=== PATIENT | male | born 1935 | race Caucasian/White ===

== ENCOUNTER 2018-04-25 07:36 | Observation (INO) ==
--- NOTE | 2018-04-25 11:32 | Internal Med History&Physical ---
Date of Encounter: 04/25/18 Time of Encounter: 11:26 Internal Medicine - H&P: HPI Chief complaint: chest pain Admitted From: Emergency Dept Plans for Post Hospital Care: Home History of present illness: Mr. Sharp is a 82 year old male Patient with history of COPD, chronic respiratory failure on 3l of oxygen at home, diabetes, CK D, and obesity patient present to [facility] with chest pain described as chest tightness going up to his neck worse with exertion also some shortness of breath and productive cough of thick yellow sputum. On arrival BP was 117/72 EKG was abnormal showing anteroseptal GA age undetermined with no acute changes troponin was a negative chest x-ray no acute pneumonia patient has increased his oxygen from 3-4 L and then he was transferred here for further evaluation because for chest pain he Is now more or less chest pain-free exam on arrival lungs bilateral rhonchi no active wheezing white count 12.5 hemoglobin 11.3 bun 66 creatinine is 3 no previous labs here but [facility] last year creatinine was 2.5. Past Med Surg Social Fam HX - Past Medical History Medical history: COPD, diabetes, hypertension, renal disease All Systems PM: A 10-system review of systems was performed and is negative for pertinent findings except as documented above in the HPI. - Constitutional General appearance: Present: A&O X 3 Exam: done - Respiratory Respiratory exam: Present: decreased breath sounds, rhonchi - Cardiovascular Cardiovascular exam: Present: RRR, +S1, +S2. Absent: diastolic murmur, gallop, rubs, systolic murmur - Extremities Exam Extremities exam: Present: warm, radial pulses palpable and symmetrical. Absent: calf tenderness, cyanotic, pedal edema - Assessment and plan (1) Chest pain Current Visit: Yes Status: Acute Assessment and plan: Chest pain and the patient with multiple risk factors diabetes, hypertension, obesity, with abnormal EKG of anteroseptal GA age undetermined need further cardiac evaluation with trend troponin obtain 2-D echo and nuclear stress test in a.m. Qualifiers: Chest pain type: unspecified Qualified Code(s): R07.9 - Chest pain, unspecified (2) COPD (chronic obstructive pulmonary disease) Current Visit: Yes Status: Chronic Assessment and plan: Chronic respiratory failure patient is uncontrolled today. Home will keep him home medication test no active wheezing at present Qualifiers: COPD type: emphysema Emphysema type: unspecified Qualified Code(s): J43.9 - Emphysema, unspecified (3) Diabetes 1.5, managed as type 2 Current Visit: Yes Status: Chronic Assessment and plan: Chronic resume home medication and place on sliding scale (4) EL (acute kidney injury) Current Visit: Yes Status: Chronic Assessment and plan: Acute on chronic kidney injury was started on IV hydration and consult nephrology for follow-up (5) Abnormal EKG Current Visit: Yes Status: Acute Assessment and plan: EKG is abnormal of anteroseptal GA age undetermined also possible due to lead placement we will repeat in a.m. and obtain 2-D echo to assess wall motion and LV function (6) Bronchitis Current Visit: Yes Status: Acute Assessment and plan: Patient with a productive cough of thick yellow sputum suggestive of bronchitis chest x-ray does not show pneumonia But has mild leukocytosis (7) Obesity Current Visit: Yes Status: Chronic Assessment and plan: Chronic due to excess caloric intake Qualifiers: Obesity type: due to excess calories Obesity classification: unspecified obesity classification Serious obesity comorbidity presence: unspecified whether serious comorbidity present Qualified Code(s): E66.09 - Other obesity due to excess calories - Time Spent With Patient Total time spent is greater than 50% in coordination of care (as documented) at patient's floor/unit and/or counseling patient:
[2018-04-25] MEDS ORDERED: traMADol 50 MG TABLET PO PRN (11:39)
[2018-04-25] MEDS ORDERED: Naloxone 0.4 MG/ML INJ IVP PRN (11:39)
[2018-04-25] MEDS ORDERED: D5% in Water 1,000 ML IVC PRN (11:52)
[2018-04-25] MEDS ORDERED: Dextrose Gel 15 GM/37.5 ML TUBE PO PRN ×2 (11:52)
[2018-04-25] MEDS ORDERED: *HR* Dextrose 50 % in Water (Syg) 50 ML SYRINGE IVP PRN (11:52)
[2018-04-25] MEDS: Levofloxacin 500 MG/100 ML 500 MG/100 ML BAG IVPB SCH (12:41)
[2018-04-25] MEDS: 0.9 % Sodium Chloride 1,000 ML IVC SCH (12:41)
[2018-04-25 12:43] LABS: Alanine Aminotransferase 9 Units/L (7-52); Albumin 3.5 g/dL (3.5-5.7); Albumin/Globulin Ratio 1.3 (1.1-2.2); Alkaline Phosphatase 80 Units/L (34-104); Aspartate Amino Transferase 10 Units/L (13-39); BUN/Creatinine Ratio 22 (6-26); Bilirubin,Total 0.5 mg/dL (0.3-1.0); Blood Urea Nitrogen 65 mg/dL (8-23); Calcium 8.5 mg/dL (8.6-10.3); Carbon Dioxide 21 mEq/L (23-29); Chloride 111 mEq/L (98-107); Globulin 2.7 g/dL (2.4-3.5); Glucose 121 mg/dL (70-105); Osmolality,Calculated 310 (280-300); Potassium 4.4 mEq/L (3.5-5.1); Sodium 140 mEq/L (136-145); Total Protein 6.2 g/dL (6.4-8.9); Troponin I < 0.03 ng/mL (< 0.04); eGFR For Non-African Americans 21 (> 60)
--- NOTE | 2018-04-25 12:59 | Event Note ---
Date of Encounter: 04/25/18 Time of Encounter: 12:58 - Cardiology Event Note Cardiology consulted for abnormal ECG. Troponin negative. Echo and stress test pending per primary service. Further cardiology recommendations pending testing.
[2018-04-25] MEDS: Acetaminophen 325 MG TABLET PO PRN ×2 (14:43→20:39)
[2018-04-25] MEDS: Insulin LISPRO 300 UNITS/3 ML VIAL SQ SCH ×2 (17:18→19:58)
[2018-04-26] MEDS: 0.9 % Sodium Chloride 1,000 ML IVC SCH ×2 (00:31→21:40)
[2018-04-26 00:57] LABS: Hematocrit 30.9 % (37.5-50.1); Hemoglobin 9.8 g/dL (12.9-16.9); Mean Corpuscular HGB Conc 31.7 g/dL (31.6-35.5); Mean Corpuscular Volume 91.4 fL (83.0-100.0); Platelet Count 210 K/mcL (140-400); Red Blood Count 3.38 M/mcL (4.19-5.50); Red Cell Distribution Width 13.8 % (11.5-14.5)
[2018-04-26 01:17] LABS: Chol/HDL Ratio 2.2 (0-4.9); Magnesium 2.2 mg/dL (1.6-2.6)
[2018-04-26] MEDS ORDERED: Regadenoson 0.4 MG/5 ML SYRINGE IVP ONE (05:45)
[2018-04-26] MEDS ORDERED: Nitroglycerin 0.4 MG TAB.SUBL SL PRN (07:34)
[2018-04-26] MEDS: Multivit/Ca/Min/Fe/FA 1 TAB TABLET PO SCH (07:51)
[2018-04-26] MEDS: Insulin LISPRO 300 UNITS/3 ML VIAL SQ SCH ×4 (07:54→21:27)
[2018-04-26] MEDS: Levofloxacin 500 MG/100 ML 500 MG/100 ML BAG IVPB SCH (08:10)
[2018-04-26 08:25] LABS: Calcium 8.4 mg/dL (8.6-10.3); Potassium 4.4 mEq/L (3.5-5.1)
--- NOTE | 2018-04-26 08:47 | Internal Med Progress Note ---
Hospitalist Progress Note - Encounter Date of Encounter: 04/26/18 Time of Encounter: 08:43 - Subjective Interval History: Patient continued to have 2/10 chest pressure that is midsternal. owever, he reports chest pressure sensa is worse with work of breathing and coughing. Denies any shortness of breath, dizziness, fatigue. He reports that he is stead rené improving. - Exam Vitals: Temp Pulse Resp BP Pulse Ox 98.5 F 99 20 124/66 98 04/26/18 07:24 04/26/18 07:24 04/26/18 07:24 04/26/18 07:24 04/26/18 08:07 Exam: PHYSICAL EXAMINATION: GENERAL: Elderly male, NAD, a and O 3 HEENT: Head is normocephalic and atraumatic. Extraocular muscles are intact. Pupils are equal, round, and reactive to light and accommodation. NECK: Supple. No carotid bruits. No lymphadenopathy or thyromegaly. CHEST: symmetrical expansion, no tenderness to palpation LUNGS: Clear to auscultation B/L AP and L. HEART: Regular rate and rhythm, S1, S2 without murmurs, rubs or gallops. ABDOMEN: Soft, nontender, and nondistended. Positive bowel sounds. No hepatosplenomegaly was noted. EXTREMITIES: Without any cyanosis, clubbing, rash, lesions or edema. NEUROLOGIC: Cranial nerves II through XII are grossly intact. PSYCHIATRIC: Appropriate affect, denies SI/HI, without agitation or anxiety SKIN: No ulceration or induration present. - Assessment and Plan (1) CKD (chronic kidney disease) stage 4, GFR 15-29 ml/min Current Visit: Yes Status: Acute Assessment and Plan: H/O CKD IV Scr 2.66 today improving compared to [place] labs and yesterdays Scr Continue to avoid nephrotoxins and monitor labs daily (2) Abnormal EKG Current Visit: Yes Status: Acute Assessment and Plan: EKG from [place] with anterior septal TN age undetermined Obtain repeat EKG this morning 2-D Echo pending To undergo stress test this afternoon (3) Bronchitis Current Visit: Yes Status: Acute Assessment and Plan: Complaining of shortness of breath, cough productive of moderate thick yellow sputum Recent diagnosis of bronchitis from PCP Chest x-ray without acute pulmonary process Continue to treat bronchitis with aerosols, add Levaquin Supportive care for cough (4) Chest pain Current Visit: Yes Status: Acute Assessment and Plan: Continues to endorse 2/10 midsternal chest pressure and shortness of breath Chest pressure does not appear to be cardiac in origin as patient is reporting worsening pressure with work of breathing and cough However, EKG did reveal anterior septal lateral TN of undetermined age Repeat EKG, obtain 2-D echo, stress test this afternoon Serial troponins negative 3 No events on telemetry overnight Continue to rule out ACS (5) EL (acute kidney injury) Current Visit: Yes Status: Resolved (6) COPD (chronic obstructive pulmonary disease) Current Visit: Yes Status: Chronic Assessment and Plan: History of interstitial lung disease; chronic respiratory failure with hypoxia Hypoxia worsening with acute exacerbation of COPD No active wheezing on auscultation Continue to treat with aerosols Respiratory support with nasal cannula as needed Currently resting comfortably and without respiratory distress on 4 L; wears 3 L chronically at home (7) Diabetes 1.5, managed as type 2 Current Visit: Yes Status: Chronic Assessment and Plan: Controlled, continue sliding scale coverage, fingerstick blood glucose and diabetic diet DVT Prophylaxis: eliquis - Time Spent with Patient Total time spent is greater than 50% in coordination of care (as documented) at patient's floor/unit and/or counseling patient: less than 15 minutes Plan of Care Discussed with: patient Internal Medicine: Result - Labs CBC & Chem 7: 04/26/18 00:22 04/26/18 07:37 Labs: Short CBC 04/26/18 Range/Units 00:22 WBC 11.3 H (4.3-11.1) K/mcL Hgb 9.8 L (12.9-16.9) g/dL Hct 30.9 L (37.5-50.1) % Plt Count 210 (140-400) K/mcL BMP 04/25/18 04/26/18 11:59 07:37 Sodium 140 140 Potassium 4.4 4.4 Chloride 111 H 115 H Carbon Dioxide 21 L 20 L BUN 65 H 55 H Creatinine 2.92 H 2.66 H Glucose 121 H 134 H Calcium 8.5 L 8.4 L Cardiac Enzymes 04/25/18 04/25/18 04/26/18 Range/Units 11:59 17:32 00:22 Troponin I < 0.03 < 0.03 < 0.03 (< 0.04) ng/mL Liver Function 04/25/ Range/Units 11:59 Total Bilirubin 0.5 (0.3-1.0) mg/dL AST 10 L (13-39) Units/L ALT 9 (7-52) Units/L Alkaline Phosphatase 80 (34-104) Units/L Albumin 3.5 (3.5-5.7) g/dL Consult Discharge Plan - Plan Referrals: Tim Chapin MD [Primary Care Provider] - (4) Chest pain Qualifiers: Chest pain type: unspecified Qualified Code(s): R07.9 - Chest pain, unspecified (6) COPD (chronic obstructive pulmonary disease) Qualifiers: COPD type: emphysema Emphysema type: unspecified Qualified Code(s): J43.9 - Emphysema, unspecified
--- NOTE | 2018-04-26 09:10 | Electrocardiograph Report ---
[place] [address] Test Date: 2018-04-25 Pat Name: Tim Sharp Department: 115 Room: 3B11 Gender: M Sample Room Supervisor: : 1935 Requested By: Elva Centeno Order Number: [id number] Reading MD: Luisito Mary Measurements Intervals [place] Rate: 119 P: [place]: 0 QRS: 12 QRSD: 77 T: 47 QT: 337 QTc: 408 Interpretive Statements Sinus tachycardia Prolonged OK interval Electronically Signed On 04-26-2018 9:08:25 EST by Luisito Mary
[2018-04-26] MEDS: Ipratropium/Albuterol Neb 3 ML IH SCH ×4 (11:41→21:38)
--- NOTE | 2018-04-26 13:34 | Electrocardiograph Report ---
[address] [address] Test Date: 2018-04-26 Pat Name: Tim Sharp Department: 113 Room: 3B11 Gender: Customer Services Coordinator: GORDO : 1935 Requested By: Tyron Vu Order Number: [id number] Reading MD: Eula Farias Measurements Intervals [place] Rate: 89 P: 44 [place]: 225 QRS: 5 QRSD: 105 T: 26 QT: 325 QTc: 372 Interpretive Statements SINUS RHYTHM WITH FIRST DEGREE AV BLOCK WITH OCCASIONAL VENTRICULAR PREMATURE COMPLEXES LOW QRS VOLTAGE IN PRECORDIAL LEADS Electronically Signed On 04-26-2018 13:32:52 EST by Eula Farias
[2018-04-26] MEDS: Apixaban 5 MG TABLET PO SCH (13:35)
--- NOTE | 2018-04-26 14:07 | Nephrology Consult Note ---
Date of Encounter: 04/26/18 Time of Encounter: 14:05 Assessment and Plan (1) Acute kidney injury superimposed on chronic kidney disease Current Visit: Yes Status: Acute - Patient initially presented to [facility] and was found to have an elevated creatinine at 3.01 - Patient has a known history of underlying chronic kidney disease stage IV - Acute kidney injury etiology is unknown at this time; unknown baseline creatinine - Patient does take Flomax 0.4 mg by mouth daily at home - Serum creatinine has since decreased to 2.66 Plan: - Will order retroperitoneal ultrasound to rule out obstructive etiology - UA ordered with CK, urine sodium, urine Cr, protein:Cr ratio, urine osmolality, and urine eosinophils - Continue gentle IV fluid hydration; currently on normal saline at 75 mL per hour - Renally dose medications, avoid nephrotoxins if possible (2) Chest pain Current Visit: Yes Status: Acute - Initially presented to [facility] with the chief complaint of chest pain - Patient still has midsternal chest pain with shortness of breath - EKG from [facility] demonstrated anterior septal IA; undetermined age - Troponin negative 3 - Cardiology has been consulted; awaiting recommendations - Stress test, 04/26: Negative for ischemia/infarct; Gated EF >70% Qualifiers: Chest pain type: unspecified Qualified Code(s): R07.9 - Chest pain, unspecified (3) Bronchitis Current Visit: Yes Status: Acute - Patient presented to [facility] complaining of SOB, productive cough with yellow sputum - Patient had a recent diagnosis of bronchitis from his PCP - Chest x-ray: No acute process - White count is 11.3 Plan: - Levaquin renally dosed at 500 mg IV Q48 - DuoNeb nebs every 6 hours - Continue O2 support via nasal cannula; maintain SPO2 >92% (4) COPD (chronic obstructive pulmonary disease) Current Visit: Yes Status: Chronic - Known history of COPD on 3 L of O2 at home - Presented with worsening shortness of breath and hypoxia - Currently being treated with duo nebs and Levaquin - Plan as above Qualifiers: COPD type: emphysema Emphysema type: unspecified Qualified Code(s): J43.9 - Emphysema, unspecified (5) CKD (chronic kidney disease) stage 4, GFR 15-29 ml/min Current Visit: Yes Status: Acute - Known history of chronic kidney disease - Plan as above (6) Diabetes Current Visit: Yes Status: Acute - Continue sliding scale insulin - Management per primary team Qualifiers: Qualified Code(s): E11.9 - Type 2 diabetes mellitus without complications History of Present Illness - History of Present Illness Tim Sharp is an 82 year old male with a PMH of COPD on 3 L O2, DM, CKD, and obesity who presented to [facility] on 04/25/18 with a chief complaint of chest pain. Patient describes pain as chest tightness going up his neck. Pain exacerbated with exertion, accompanied by shortness of breath and reactive cough with yellow sputum. EKG demonstrated anteroseptal IA, age undetermined without any acute changes. Troponin was negative. Patients oxygen requirement in creased to 3-4 L. Patient was subsequently transferred to [facility] for further management. Upon arrival, laboratory analysis demonstrated an elevated creatinine at 2.92, and elevated BUNs at 65, GFR 21, and a low calcium at 8.5. Creatinine has since decreased to 2.66. No prior labs for comparison per chart review. Patient normally sees a appeals board referee in the outpatient setting. Cardiology was consulted for the abnormal EKG. Echo and stress test were ordered. Patient continued to have 2 out of 10 chest pressure located in the middle sternum. Patient seen and examined at bedside; he reports that his chest pain has subsided since his stress test. States that he is on Flomax for an enlarged prostate. Patient states that his GFR baseline is approximately 23 according to his outpatient appeals board referee. Patient currently denies having any abdominal pain, suprapubic pain, urinary changes, fever, chills, nausea, vomiting, shortness of breath, chest pain, diaphoresis, or headache. He has no complaints at this time. Past Med Surg Social Fam HX - Past Medical History Medical history: COPD, diabetes, hypertension, renal disease - Social History Smoking Status: Former smoker - Family History Mother Hx Family Cardiac Disorders: Yes Father Hx Family Respiratory Disorders: Yes Hx Family Cancer: Yes Medications and Allergies Apixaban [Eliquis] 5 mg PO DAILY 04/25/18 [History] Ipratropium/Albuterol Neb [Duoneb] 3 ml IH Q6HR 04/25/18 [History] Multivitamin [One Daily Multivitamin] 1 tab PO DAILY 04/25/18 [History] Nitrofurantoin [Macrodantin] 50 mg PO DAILY 04/25/18 [History] Nitroglycerin [Nitrostat] 0.4 mg PO AD PRN 04/25/18 [History] Omeprazole [PriLOSEC] 40 mg PO DAILY 04/25/18 [History] Tamsulosin [Flomax] 0.4 mg PO DAILY 04/25/18 [History] Allergy/AdvReac Type Severity Reaction Status Date / Time Sulfa (Sulfonamide Allergy Hives Verified 04/25/18 12:28 Antibiotics) Penicillins AdvReac Hives Verified 04/25/18 12:28 tetanus and diphtheria AdvReac Joint Pain Verified 04/25/18 12:28 toxoids Review of Systems Constitutional: as per HPI, no chills, no fever(s), no headache(s), no malaise Cardiovascular: as per HPI, no chest pain, no chest pain at rest, no diaphoresis, no dyspnea, no palpitations Respiratory: as per HPI, no cough, no dyspnea, no wheezing, no pain on insp iration Gastrointestinal: as per HPI, no abdominal pain, no change in bowel habits Genitourinary Male: as per HPI, no hematuria, no urinary frequency, no urinary hesitancy, no urinary incontinence, no urinary urgency Integumentary: as per HPI, no hirsutism, no striae Neurological: as per HPI Psychiatric: as per HPI, no depression, no difficulty concentrating Endocrine: as per HPI Exam - Vital Signs Vital signs: Initial Vital Signs Pulse Ox 91 04/25/18 11:30 Vital Signs - Last 8 Hours Temp Pulse Resp BP Pulse Ox 04/26/18 11:13 98.5 F 98 20 106/61 98 04/26/18 08:07 98 04/26/18 07:24 98.5 F 99 20 124/66 98 Intake and Output 04/25/18 04/26/18 04/26/18 23:59 07:59 15:59 Intake Total 340 / 340 1000 / 1000 Output Total 500 / 500 975 / 975 500 / 500 Balance -160 / -160 25 / 25 -500 / -500 Intake: IV Fluids 100 / 100 1000 / 1000 0.9 % Sodium Chloride 1,000 ML 1000 / 1000 @ 75 mls/hr IVC .[id number] [facility] Rx #:[id number] Levaquin Premix 500mg/100mL 500 100 / 100 mg In 100 ml @ 100 mls/hr IVPB DAILY [facility] Rx#:[id number] Oral 240 / 240 0 / 0 Output: Urine 500 / 500 975 / 975 500 / 500 Other: Meal Dinner Percent of Meal Consumed 100% Weight 80.2 kg Blood Glucose* 126 134 125 Patient Weight 04/26/18 23:59 Weight 80.2 kg - General Appearance Exam: General: A&O X3, no acute distress, currently on O2 via nasal cannula Head: atraumatic, normocephalic Eye: PERRL, EOMI, conjuntiva pink, sclera anicteric Neck: Supple, trachea midline; No lymphadenopathy Respiratory: Diminished breath sounds bilaterally Cardiovascular: Regular rate and rhythm, S1, S2 Abdomen: Soft, nontender Extremities: No clubbing, edema, or cyanosis Psychiatric: Normal affect, normal mood Skin: Dry, intact Results - Lab Results 04/26/18 00:22 04/26/18 07:37 Most recent lab results Calcium 8.4 mg/dL (8.6-10.3) L 04/26/18 07:37 Magnesium 2.2 mg/dL (1.6-2.6) 04/26/18 00:22 Consult Discharge Plan - Plan Referrals: Tim Chapin MD [Primary Care Provider] - 05/03/18 11:30 am
[2018-04-26 15:15] LABS: Bilirubin,Urine Negative (Negative); Blood,Urine Trace (Negative); Clarity,Urine Clear (Clear); Color,Urine Yellow (Yellow); Glucose,Urine (UA) 100 mg/dL (Normal); Ketones,Urine Negative (Negative); Leukocyte Esterase,Urine Negative (Negative); Nitrite,Urine Negative (Negative); Protein,Urine 30 mg/dL (Neg-Trace); Specific Gravity,Urine 1.018 (1.010-1.025); Urobilinogen,Urine Normal (Normal)
[2018-04-26 15:20] LABS: Squamous Epithelial Cell,Urine Few per lpf (None-Few); WBC,Urine 0-3 per hpf (0-3)
[2018-04-26 15:41] LABS: Protein/Creatinine Ratio,Urine 0.7 mg/mg (0.00-0.20)
[2018-04-27] MEDS: Ipratropium/Albuterol Neb 3 ML IH SCH ×2 (04:31→11:10)
[2018-04-27 05:54] LABS: Hemoglobin 10.1 g/dL (12.9-16.9); Mean Corpuscular HGB Conc 31.6 g/dL (31.6-35.5); Mean Corpuscular Hemoglobin 29.6 pg (28.0-33.3); Mean Corpuscular Volume 93.8 fL (83.0-100.0); Platelet Count 184 K/mcL (140-400); Red Blood Count 3.41 M/mcL (4.19-5.50); Red Cell Distribution Width 13.7 % (11.5-14.5)
[2018-04-27 06:18] LABS: Calcium 8.2 mg/dL (8.6-10.3); Potassium 4.3 mEq/L (3.5-5.1)
[2018-04-27] MEDS: Insulin LISPRO 300 UNITS/3 ML VIAL SQ SCH ×2 (08:07→11:44)
[2018-04-27] MEDS: Multivit/Ca/Min/Fe/FA 1 TAB TABLET PO SCH (08:10)
[2018-04-27] MEDS: Apixaban 5 MG TABLET PO SCH (08:10)
--- NOTE | 2018-04-27 10:18 | Internal Med Progress Note ---
Hospitalist Progress Note - Encounter Date of Encounter: 04/27/18 Time of Encounter: 10:13 - Subjective Interval History: Presented with chest pain ACS rule out. Serial troponins negative 3, stress test negative for ischemia or perfusion defects. Continues to be chest pain- free. Discussed findings of nodule on left kidney and further workup including MRI. Patient agreeable and denies any further questions at this time. - Exam Vitals: Temp Pulse Resp BP Pulse Ox 98.4 F 80 17 124/68 98 04/27/18 06:41 04/27/18 06:41 04/27/18 06:41 04/27/18 06:41 04/27/18 06:41 Exam: PHYSICAL EXAMINATION: GENERAL: Elderly male, NAD, a and O 3 HEENT: Head is normocephalic and atraumatic. Extraocular muscles are intact. Pupils are equal, round, and reactive to light and accommodation. NECK: Supple. No carotid bruits. No lymphadenopathy or thyromegaly. CHEST: symmetrical expansion, no tenderness to palpation LUNGS: Clear to auscultation B/L AP and L. HEART: Regular rate and rhythm, S1, S2 without murmurs, rubs or gallops. ABDOMEN: Soft, nontender, and nondistended. Positive bowel sounds. No hepatosplenomegaly was noted. EXTREMITIES: Without any cyanosis, clubbing, rash, lesions or edema. NEUROLOGIC: Without facial droop or slurred speech SKIN: No ulceration or induration present. - Assessment and Plan (1) Chest pain Current Visit: Yes Status: Ruled-out Assessment and Plan: Continues to endorse 2/10 midsternal chest pressure and shortness of breath Chest pressure does not appear to be cardiac in origin as patient is reporting worsening pressure with work of breathing and cough However, EKG did reveal anterior septal lateral PA of undetermined age Repeat EKG, obtain 2-D echo, stress test this afternoon Serial troponins negative 3 No events on telemetry overnight ACS ruled out with negative stress test and serial troponins negative 3. (2) COPD (chronic obstructive pulmonary disease) Current Visit: Yes Status: Chronic Assessment and Plan: History of interstitial lung disease; chronic respiratory failure with hypoxia Hypoxia worsening with acute exacerbation of COPD No active wheezing on auscultation Continue to treat with aerosols Respiratory support with nasal cannula as needed Resting comfortably on 3 L nasal cannula. (3) Bronchitis Current Visit: Yes Status: Acute Assessment and Plan: Complaining of shortness of breath, cough productive of moderate thick yellow sputum Recent diagnosis of bronchitis from PCP Chest x-ray without acute pulmonary process Continue to treat bronchitis with aerosols, add Levaquin Supportive care for cough 04/27--cough resolving. Patient now back on baseline 3 L nasal cannula without respiratory distress. Continue Levaquin for total of 5 day course of supportive care and aerosols. (4) CKD (chronic kidney disease) stage 4, GFR 15-29 ml/min Current Visit: Yes Status: Acute Assessment and Plan: H/O CKD IV Scr 2..41 today Renal function continued to improve Continue to avoid nephrotoxins and monitor labs daily (5) Acute kidney injury superimposed on chronic kidney disease Current Visit: Yes Status: Acute Assessment and Plan: EL on CKD IV Unclear of baseline renal function Serum creatinine improving Nephrology following; thank you, I appreciate your recommendations UA completed revealing urine protein 30, urine glucose 100, urine creatinine 60, protein/creatinine ratio 0.70, urine sodium was 7.5, urine total protein 42 Retroperitoneal ultrasound revealing moderate right hydronephrosis without evidence of left hydronephrosis, 1.9 x 1.1 cm hypoechoic nodule in the inferior aspect of the left kidney (6) Diabetes Current Visit: Yes Status: Acute Assessment and Plan: Continue sliding scale insulin coverage and AC/HS Accu-Cheks as well as diabetic diet (7) Nodule of kidney Current Visit: Yes Status: Acute Assessment and Plan: Incidental findings of a 1.9 x 1.1 cm hypoechoic nodule on the inferior aspect of the left kidney as well as moderate hydronephrosis. Findings D/W nephrology who is following consultation. Recommendations are to - Time Spent with Patient Total time spent is greater than 50% in coordination of care (as documented) at patient's floor/unit and/or counseling patient: less than 15 minutes Plan of Care Discussed with: patient Internal Medicine: Result - Labs CBC & Chem 7: 04/27/18 05:11 04/27/18 05:11 Labs: Short CBC 04/27/18 Range/Units 05:11 WBC 10.0 (4.3-11.1) K/mcL Hgb 10.1 L (12.9-16.9) g/dL Hct 32.0 L (37.5-50.1) % Plt Count 184 (140-400) K/mcL BMP 04/26/18 04/27/18 07:37 05:11 Sodium 140 138 Potassium 4.4 4.3 Chloride 115 H 111 H Carbon Dioxide 20 L 19 L BUN 55 H 44 H Creatinine 2.66 H 2.41 H Glucose 134 H 146 H Calcium 8.4 L 8.2 L Urine 04/26/18 Range/Units 14:52 Urine Color Yellow (Yellow) Urine Clarity Clear (Clear) Urine pH 6.0 (5.0-8.0) pH Units Ur Specific [place] 1.018 (1.010-1.025) Urine Protein 30 H (Neg-Trace) mg/dL Urine Glucose (UA) 100 H (Normal) mg/dL - Impressions Impressions Retroperitoneum Ultrasound 04/26/18 20:15 IMPRESSION: Moderate right hydronephrosis. No evidence of left hydronephrosis. 1.9 x 1.1 cm hypoechoic nodule in the inferior aspect of the left kidney. This could represent a cyst, however it is not definitively characterized on this examination. If the patient can receive IV contrast, recommend further evaluation with renal mass protocol CT or MRI. If the patient cannot receive IV contrast, a noncontrast MRI would provide additional information. Mild prostatomegaly with small to moderate postvoid residual. D/ / 04/26/2018 21:33:04 Michele Pink MD / [email or web address] Interpreting Provider: Michele Pink MD Consult Discharge Plan - Plan Referrals: Tim Chapin MD [Primary Care Provider] - 05/03/18 11:30 am (1) Chest pain Qualifiers: Chest pain type: unspecified Qualified Code(s): R07.9 - Chest pain, unspecified (2) COPD (chronic obstructive pulmonary disease) Qualifiers: COPD type: emphysema Emphysema type: unspecified Qualified Code(s): J43.9 - Emphysema, unspecified (6) Diabetes Qualifiers: Diabetes mellitus type: type 2 Diabetes mellitus [facility] insulin use: without long term care administrator use Diabetes mellitus complication status: without complication Qualified Code(s): E11.9 - Type 2 diabetes mellitus without complications
[2018-04-27 10:43] VITALS: BP 114/61
[2018-04-27] MEDS: 0.9 % Sodium Chloride 1,000 ML IVC SCH (11:14)
--- NOTE | 2018-04-27 13:17 | Nephrology Progress Note ---
Date of Encounter: 04/27/18 Time of Encounter: 13:15 - Assessment and Plan (1) Acute kidney injury superimposed on chronic kidney disease Current Visit: Yes Status: Acute - Patient initially presented to [place] and was found to have an elevated creatinine at 3.01 - Patient has a known history of underlying chronic kidney disease stage IV - Likely secondary to obstruction - Retroperitoneal ultrasound demonstrated moderate R-sided hydronephrosis. 1.9 x 1.1 cm hypoechoic nodule in the inferior aspect of left kidney, mild prostatomegaly with mild to moderate postvoid residual - Patient does take Flomax 0.4 mg by mouth daily at home - Serum creatinine today has improved to 2.41 - Urine studies were unremarkable Plan: - Continue gentle IV fluid hydration - Renally dose medications, avoid nephrotoxins if possible (2) Chest pain Current Visit: Yes Status: Ruled-out - Initially presented to [place] with the chief complaint of chest pain - Patient still has midsternal chest pain with shortness of breath - EKG from [place] demonstrated anterior septal ID; undetermined age - Troponin negative 3 - Cardiology has been consulted; awaiting recommendations - Stress test, 04/26: Negative for ischemia/infarct; Gated EF >70% Qualifiers: Chest pain type: unspecified Qualified Code(s): R07.9 - Chest pain, unspecified (3) COPD (chronic obstructive pulmonary disease) Current Visit: Yes Status: Chronic - Known history of COPD on 3 L of O2 at home - Presented with worsening shortness of breath and hypoxia - Currently being treated with duo nebs and Levaquin - Plan as above Qualifiers: COPD type: emphysema Emphysema type: unspecified Qualified Code(s): J43.9 - Emphysema, unspecified (4) Bronchitis Current Visit: Yes Status: Acute - Patient presented to [place] complaining of SOB, productive cough with yellow sputum - Chest x-ray: No acute process Plan: - Levaquin renally dosed at 500 mg IV Q48 - DuoNeb nebs every 6 hours - Continue O2 support via nasal cannula; maintain SPO2 >92% (5) CKD (chronic kidney disease) stage 4, GFR 15-29 ml/min Current Visit: Yes Status: Acute - Known history of chronic kidney disease - Plan as above (6) Diabetes Current Visit: Yes Status: Acute - Continue sliding scale insulin - Management per primary team Qualifiers: Diabetes mellitus type: type 2 Diabetes mellitus emt intermediate insulin use: without emt intermediate use Diabetes mellitus complication status: without complication Qualified Code(s): E11.9 - Type 2 diabetes mellitus without complications (7) Nodule of kidney Current Visit: Yes Status: Acute Subjective Interval history: Patient seen and examined at bedside; he states that he is feeling well today. Denies having any suprapubic pain or abdominal pain. States that he has somewhat difficulty maintaining proper urine flow, but that this is been a problem that has been going on for the last 5 months. No further complaints. Objective - Vital Signs Vital signs: Vital Signs Temp Pulse Resp BP Pulse Ox 04/27/18 11:10 16 93 04/27/18 10:37 98.3 F 84 16 114/61 93 04/27/18 06:41 98.4 F 80 17 124/68 98 04/27/18 04:32 18 97 04/27/18 03:32 97.7 F 89 16 122/85 97 04/26/18 23:16 98.2 F 91 16 116/64 97 04/26/18 21:38 17 98 04/26/18 19:03 97.3 F L 107 16 127/94 97 04/26/18 16:21 16 98 04/26/18 14:53 98.0 F 81 18 128/71 98 Intake and Output 04/26/18 04/27/18 04/27/18 23:59 07:59 15:59 Intake Total 1360 / 1360 Output Total 550 / 550 200 / 200 400 / 400 Balance -550 / -550 -200 / -200 960 / 960 Intake: IV Fluids 1000 / 1000 0.9 % Sodium Chloride 1,000 ML 1000 / 1000 @ 75 mls/hr IVC .[id number] [facility] Rx #:[id number] Oral 360 / 360 Output: Urine 550 / 550 200 / 200 400 / 400 Other: Meal Breakfast Percent of Meal Consumed 100% Weight 84.4 kg Blood Glucose* 171 139 176 Patient Weight 04/27/18 23:59 Weight 84.4 kg - General Appearance Exam: General: A&O X3, no acute distress, currently on O2 via nasal cannula Head: atraumatic, normocephalic Eye: PERRL, EOMI, conjuntiva pink, sclera anicteric Neck: Supple, trachea midline; No lymphadenopathy Respiratory: Diminished breath sounds bilaterally Cardiovascular: Regular rate and rhythm, S1, S2 Abdomen: Soft, nontender Extremities: No clubbing, edema, or cyanosis Psychiatric: Normal affect, normal mood Skin: Dry, intact - Lab 04/27/18 05:11 04/27/18 05:11 Most recent lab results Calcium 8.2 mg/dL (8.6-10.3) L 04/27/18 05:11 Magnesium 2.2 mg/dL (1.6-2.6) 04/26/18 00:22 Urine Creatinine 60 mg/dL 04/26/18 14:52 Urine Sodium 107.5 mEq/L 04/26/18 14:52 Urine Total Protein 42 mg/dL (1-14) H 04/26/18 14:52 Consult Discharge Plan - Plan Instructions: Diabetes Mellitus Type 2 in Adults (DC), Chronic Obstructive Pulmonary Disease (DC) Referrals: Tim Chapin MD [Primary Care Provider] - 05/03/18 11:30 am
[2018-04-27 14:53] LABS: Total Volume 24 Hour,Urine 1.88 Liters (0.80-1.80)
--- NOTE | 2018-04-27 15:17 | Discharge Summary ---
- NOTES TO OUTPATIENT PROVIDER Notes to Outpatient Provider: Please f/u with PCP in 1 week and f/u with road maker in 1-week. Offered f/u with [facility] but he declined perferring to f/u with road maker in [place] Dr. [place]. Orders not resulted at time of discharge: Pending orders 04/25/18 11:42 NM diandra perf SPECT multi [NM] Routine 04/27/18 14:00 Urine Creatinine 24 Hr [UCHEM] Stat Date of Encounter: 04/27/18 Time of Encounter: 15:13 - Discharge Diagnosis (1) Chest pain Priority: Primary Status: Ruled-out Qualifiers: Chest pain type: unspecified Qualified Code(s): R07.9 - Chest pain, unspecified (2) COPD (chronic obstructive pulmonary disease) Priority: Secondary Status: Chronic Qualifiers: COPD type: emphysema Emphysema type: unspecified Qualified Code(s): J43.9 - Emphysema, unspecified (3) Bronchitis Priority: Secondary Status: Acute (4) CKD (chronic kidney disease) stage 4, GFR 15-29 ml/min Priority: Secondary Status: Acute (5) Acute kidney injury superimposed on chronic kidney disease Priority: Secondary Status: Acute (6) Diabetes Priority: Secondary Status: Acute Qualifiers: Diabetes mellitus type: type 2 Diabetes mellitus retirement insulin use: without terminal carman use Diabetes mellitus complication status: without complication Qualified Code(s): E11.9 - Type 2 diabetes mellitus without complications (7) Nodule of kidney Priority: Secondary Status: Acute Assessment and Plan: Incidental findings of a 1.9 x 1.1 cm hypoechoic nodule on the inferior aspect of the left kidney as well as moderate hydronephrosis. Findings D/W nephrology who is following consultation. Recommendations are to CT imagint reveal fluid-filled densities along the right renal pelvis, measuring up to 2.6cm which are favored to be renal cysts. Ureters are non dilated and there is no evidence of hydronephrosis. It should be noted that the retroperitoneal ultrasound imaging did show suspicion for moderate right renal hydronephrosis however this was not seen on CT imaging today. This is likely result. The patient's been instructed to follow up closely with PCP and kidney doctor as well as urologist. Hospital course: Mr. Sharp is a 82 year old male with a PMH of COPD, chronic respiratory failure on 3l of oxygen at home, diabetes, CKD, and obesity patient present to [facility] with chest pain described as chest tightness with radiation to his neck reports that the chest pain was worse with exertion. It is also reporting cough, shortness of breath and moderate amounts of yellow thick sputum. Upon arrival he was found to have serum creatinine of 3.01. At that time was unclear whether or not this was baseline renal function or visit acute kidney injury. He had ACS workup which was found to be negative with negative stress test, negative serial troponins and EKG without ST-T wave changes concerning for ischemia. Additionally, nephrology has been consulted and findings are that this is his baseline renal function. Actually, his renal function improved throughout her stay with close monitoring. However, he was noted on retroperitoneal found to have possible moderate right renal hydronephrosis. Repeat CT of abdomen and pelvis obtained which did not show hydronephrosis. He was found to have a 2.6 mm right renal pelvic cyst most consistent with parapelvic renal cysts. He has been instructed to follow up with his PCP and road maker in the outpatient setting. Discharge discussed with: patient, nurse - Time Spent with Patient Total time spent providing and/or coordinating discharge services: Less than 30 minutes - Discharge Medications Home Medications: Apixaban [Eliquis] 5 mg PO DAILY 04/25/18 [History] Ipratropium/Albuterol Neb [Duoneb] 3 ml IH Q6HR 04/25/18 [History] Multivitamin [One Daily Multivitamin] 1 tab PO DAILY 04/25/18 [History] Nitrofurantoin [Macrodantin] 50 mg PO DAILY 04/25/18 [History] Nitroglycerin [Nitrostat] 0.4 mg PO AD PRN 04/25/18 [History] Omeprazole [PriLOSEC] 40 mg PO DAILY 04/25/18 [History] Tamsulosin [Flomax] 0.4 mg PO DAILY 04/25/18 [History] Allergies/Adverse Reactions: Allergy/AdvReac Type Severity Reaction Status Date / Time Sulfa (Sulfonamide Allergy Hives Verified 04/25/18 12:28 Antibiotics) Penicillins AdvReac Hives Verified 04/25/18 12:28 tetanus and diphtheria AdvReac Joint Pain Verified 04/25/18 12:28 toxoids Date of admission: 04/25/18 10:43 Primary care physician: Tim Chapin MD Consults: 04/25/18 11:50 Consult to Nephrology [CONS] Routine Consulting Provider: Kidney Colton/MAYE/LENO/HUSSEIN Reason for Consult: andreina Time Notified: 11:50 Call Completed: No 04/26/18 08:33 Consult to Nurse Navigator [CONS] Routine Comment: COPD Discharging clinician: Tyron Vu Anticipated date of discharge: 04/27/18 - Constitutional Vitals: Temp Pulse Resp BP Pulse Ox 98.3 F 84 16 114/61 93 04/27/18 10:37 04/27/18 10:37 04/27/18 11:10 04/27/18 10:37 04/27/18 11:10 General appearance: Present: A&O X 3 Exam: PHYSICAL EXAMINATION: GENERAL: Elderly male, NAD, a and O 3 HEENT: Head is normocephalic and atraumatic. Extraocular muscles are intact. Pupils are equal, round, and reactive to light and accommodation. NECK: Supple. No carotid bruits. No lymphadenopathy or thyromegaly. CHEST: symmetrical expansion, no tenderness to palpation LUNGS: Clear to auscultation B/L AP and L. HEART: Regular rate and rhythm, S1, S2 without murmurs, rubs or gallops. ABDOMEN: Soft, nontender, and nondistended. Positive bowel sounds. No hepatosplenomegaly was noted. EXTREMITIES: Without any cyanosis, clubbing, rash, lesions or edema. NEUROLOGIC: Without facial droop or slurred speech SKIN: No ulceration or induration present. - Patient Status Disposition: Home, Self-Care Condition: Good Functional capacity at discharge: independent ambulation Overall status at discharge: patient is back to baseline - Discharge Instructions Follow Up With: Tim Chapin MD [Primary Care Provider] - 05/03/18 11:30 am - Diet and Activity Activity: increase activity as tolerated, resume usual activities as tolerated Diet: diabetic diet, low fat, low cholesterol, low salt diet, other (renal diet)
[2018-04-28] MEDS ORDERED: Levofloxacin 500 MG/100 ML 500 MG/100 ML BAG IVPB SCH (09:00)
== END 2018-04-27 15:49 | disposition home or self-care (01) ==
LOC: 3BNU → SUATTDRO 10:43
PROVIDERS: ADMIT Internal Medicine Cardiovascular Disease; ATTEND Nurse Practitioner

== ENCOUNTER 2021-03-17 14:28 | Inpatient (IN) ==
[2021-03-17] MEDS ORDERED: Naloxone 0.4 MG/ML INJ IVP PRN (17:53)
[2021-03-17] MEDS ORDERED: Ondansetron 4 MG/2 ML VIAL IVP PRN (17:53)
[2021-03-17 18:58] LABS: Basophils % 0.1 %; Hematocrit 37.7 % (37.5-50.1); Hemoglobin 11.4 g/dL (12.9-16.9); Immature Granulocytes % 0.6 % (0-4); Lymphocytes # 0.4 K/mcL (0.6-4.6); Lymphocytes % 2.8 %; Mean Corpuscular HGB Conc 30.2 g/dL (31.6-35.5); Mean Corpuscular Hemoglobin 30.5 pg (28.0-33.3); Mean Corpuscular Volume 100.8 fL (83.0-100.0); Mean Platelet Volume 10.5 fL (9.4-12.4); Monocytes % 6.5 %; Neutrophils # 13.7 K/mcL (1.6-8.9); Platelet Count 162 K/mcL (140-400); Red Blood Count 3.74 M/mcL (4.19-5.50); Red Cell Distribution Width 16.7 % (11.5-14.5); White Blood Count 15.2 K/mcL (4.3-11.1)
[2021-03-17 19:38] LABS: Albumin 3.4 g/dL (3.5-5.7); Albumin/Globulin Ratio 1.3 (1.1-2.2); Calcium 8.8 mg/dL (8.6-10.3); Globulin 2.7 g/dL (2.4-3.5); Potassium 5.2 mEq/L (3.5-5.1); Total Protein 6.1 g/dL (6.4-8.9)
[2021-03-17] MEDS ORDERED: Acetaminophen 325 MG TABLET PO PRN (19:44)
[2021-03-17] MEDS ORDERED: Ipratropium/Albuterol Neb 3 ML IH PRN (20:09)
[2021-03-17] MEDS ORDERED: Dextrose Gel 15 GM/37.5 ML TUBE PO PRN ×2 (20:13)
[2021-03-17] MEDS ORDERED: D5% in Water 1,000 ML IVC PRN (20:13)
[2021-03-17] MEDS ORDERED: *HR* Dextrose 50 % in Water (Syg) 50 ML SYRINGE IVP PRN (20:13)
[2021-03-17] MEDS ORDERED: Perflutren Lipid Microsphere 1.3 ML in 0.9 % Sodium Chloride 8.7 ML IVP PRN (20:17)
[2021-03-17 20:40] LABS: Troponin I 0.5 ng/mL (< 0.04)
[2021-03-17] MEDS: Insulin LISPRO 300 UNITS/3 ML VIAL SUBQ SCH (21:15)
[2021-03-17] MEDS ORDERED: *HR* LORazepam 2 MG/ML VIAL IVP ONE (22:23)
[2021-03-17] MEDS ORDERED: Furosemide 20 MG/2 ML VIAL IVP ONE (22:23)
[2021-03-17 23:05] LABS: Adenovirus Not Detected (Not Detect); Bordetella Pertussis Not Detected (Not Detect); Chlamydophila pneumoniae Not Detected (Not Detect); Coronavirus 229E Not Detected (Not Detect); Coronavirus HKU1 Not Detected (Not Detect); Coronavirus NL63 Not Detected (Not Detect); Coronavirus OC43 Not Detected (Not Detect); Human Metapneumovirus Not Detected (Not Detect); Human Rhinovirus/Enterovirus Not Detected (Not Detect); Influenza A Subtype 2009 H1 Not Detected (Not Detect); Influenza B Not Detected (Not Detect); Mycoplasma pneumoniae Not Detected (Not Detect); Parainfluenza Virus 1 Not Detected (Not Detect); Parainfluenza Virus 2 Not Detected (Not Detect); Parainfluenza Virus 3 Not Detected (Not Detect); Parainfluenza Virus 4 Not Detected (Not Detect); Respiratory Syncytial Virus Not Detected (Not Detect); SARS-CoV-2 Not Detected (Not Detect)
[2021-03-18 04:27] LABS: Basophils % 0.1 %; Hematocrit 37.8 % (37.5-50.1); Hemoglobin 11.5 g/dL (12.9-16.9); Immature Granulocytes % 0.6 % (0-4); Lymphocytes # 0.7 K/mcL (0.6-4.6); Lymphocytes % 4.8 %; Mean Corpuscular HGB Conc 30.4 g/dL (31.6-35.5); Mean Corpuscular Hemoglobin 30.3 pg (28.0-33.3); Mean Corpuscular Volume 99.5 fL (83.0-100.0); Mean Platelet Volume 10.8 fL (9.4-12.4); Monocytes # 0.8 K/mcL (0.0-1.3); Monocytes % 5.3 %; Neutrophils # 12.7 K/mcL (1.6-8.9); Platelet Count 153 K/mcL (140-400); Red Cell Distribution Width 16.7 % (11.5-14.5); Segmented Neutrophils % 89.2 %; White Blood Count 14.3 K/mcL (4.3-11.1)
[2021-03-18 04:34] LABS: INR 1.3; Prothrombin Time 14.4 Seconds (9.4-12.1)
[2021-03-18 04:46] LABS: Calcium 8.2 mg/dL (8.6-10.3); Magnesium 2.2 mg/dL (1.6-2.6); Potassium 5.2 mEq/L (3.5-5.1)
[2021-03-18] MEDS ORDERED: Cefepime HCl 2,000 MG in 0.9 % Sodium Chloride Mini Bag 100 ML IVPB SCH (06:00)
[2021-03-18] MEDS: methylPREDNISolone 125 MG/2 ML VIAL IVP SCH ×2 (06:13→16:35)
[2021-03-18] MEDS ORDERED: *HR* Heparin 5,000 UNIT/ML VIAL IVP PRN ×2 (06:23)
[2021-03-18] MEDS ORDERED: Heparin 25,000UNIT/250ML 1/2NS 25,000 UNIT/250 ML IV.SOLN IVC SCH ×2 (06:30→07:30)
[2021-03-18 07:21] LABS: Heparin anti-factor XA UFH 0.08 IU/mL (0.30-0.70)
[2021-03-18 07:33] LABS: Activated Partial Thrombo Time 23.1 Seconds (26.0-36.0)
[2021-03-18] MEDS: Insulin LISPRO 300 UNITS/3 ML VIAL SUBQ SCH ×3 (07:59→16:33)
[2021-03-18] MEDS: Azithromycin 500 MG in 0.9 % Sodium Chloride 250 ML IVPB SCH (08:07)
[2021-03-18] MEDS ORDERED: Furosemide 40 MG/4 ML VIAL IVP ONE (09:58)
[2021-03-18] MEDS: Apixaban 5 MG TABLET PO SCH ×2 (10:20→21:38)
[2021-03-18] MEDS ORDERED: cefTRIAXone 1,000 MG in Water for inj. (sterile) 10 ML IVP SCH (18:00)
[2021-03-18] MEDS: Furosemide 40 MG/4 ML VIAL IVP SCH (21:38)
[2021-03-19 04:40] LABS: Basophils % 0.1 %; Hematocrit 38.2 % (37.5-50.1); Hemoglobin 12.4 g/dL (12.9-16.9); Immature Granulocytes % 0.7 % (0-4); Lymphocytes # 0.3 K/mcL (0.6-4.6); Lymphocytes % 2.7 %; Mean Corpuscular HGB Conc 32.5 g/dL (31.6-35.5); Mean Corpuscular Hemoglobin 31.5 pg (28.0-33.3); Mean Platelet Volume 10.6 fL (9.4-12.4); Monocytes # 0.2 K/mcL (0.0-1.3); Monocytes % 2.2 %; Neutrophils # 9.7 K/mcL (1.6-8.9); Platelet Count 149 K/mcL (140-400); Red Blood Count 3.94 M/mcL (4.19-5.50); Red Cell Distribution Width 16.6 % (11.5-14.5); Segmented Neutrophils % 94.3 %; White Blood Count 10.3 K/mcL (4.3-11.1)
[2021-03-19 05:01] LABS: Calcium 8.8 mg/dL (8.6-10.3); Magnesium 2.4 mg/dL (1.6-2.6); Phosphorous 6.3 mg/dL (2.7-4.5); Potassium 3.9 mEq/L (3.5-5.1)
[2021-03-19] MEDS: methylPREDNISolone 125 MG/2 ML VIAL IVP SCH ×2 (05:56→19:45)
[2021-03-19] MEDS: Apixaban 5 MG TABLET PO SCH ×3 (09:44→20:33)
[2021-03-19] MEDS: Azithromycin 500 MG in 0.9 % Sodium Chloride 250 ML IVPB SCH (09:45)
[2021-03-19] MEDS: Furosemide 40 MG/4 ML VIAL IVP SCH (09:45)
[2021-03-19] MEDS: Insulin LISPRO 300 UNITS/3 ML VIAL SUBQ SCH ×3 (09:50→19:30)
[2021-03-19] MEDS: Ipratropium/Albuterol Neb 3 ML IH SCH ×4 (11:15→23:43)
[2021-03-19] MEDS: Albumin 25% 25gram/100mL 25 GM/100 ML IV.SOLN IVPB SCH ×3 (15:46→23:58)
[2021-03-19] MEDS: *HR* Metoprolol 5 MG/5 ML VIAL IVP PRN (15:52)
[2021-03-19] MEDS ORDERED: Cefepime HCl 2,000 MG in Water for inj. (sterile) 20 ML IVP SCH (16:00)
[2021-03-19] MEDS ORDERED: Furosemide 20 MG/2 ML VIAL IVP SCH (18:00)
[2021-03-19] MEDS: Metoprolol XL (24 HR) Succ 25 MG TAB.ER.24H PO SCH ×2 (19:30→20:33)
[2021-03-19] MEDS: Cefepime HCl 1,000 MG in Water for inj. (sterile) 10 ML IVP SCH (19:44)
[2021-03-19] MEDS: MetroNIDAZOLE 500 MG/100 ML 500 MG/100 ML BAG IVPB SCH ×2 (19:48→23:58)
[2021-03-20] MEDS: Ipratropium/Albuterol Neb 3 ML IH SCH ×6 (04:21→23:38)
[2021-03-20] MEDS: methylPREDNISolone 125 MG/2 ML VIAL IVP SCH ×2 (05:31→18:33)
[2021-03-20] MEDS: Cefepime HCl 1,000 MG in Water for inj. (sterile) 10 ML IVP SCH ×2 (05:32→18:15)
[2021-03-20 06:05] LABS: Magnesium 2.5 mg/dL (1.6-2.6); Potassium 3.4 mEq/L (3.5-5.1)
[2021-03-20 06:20] LABS: Basophils % 0.1 %; Hematocrit 33.6 % (37.5-50.1); Immature Granulocytes % 0.5 % (0-4); Lymphocytes # 0.2 K/mcL (0.6-4.6); Lymphocytes % 1.1 %; Mean Corpuscular HGB Conc 31.8 g/dL (31.6-35.5); Mean Corpuscular Hemoglobin 30.9 pg (28.0-33.3); Mean Corpuscular Volume 97.1 fL (83.0-100.0); Monocytes # 0.6 K/mcL (0.0-1.3); Monocytes % 4.1 %; Neutrophils # 14.6 K/mcL (1.6-8.9); Platelet Count 146 K/mcL (140-400); Red Blood Count 3.46 M/mcL (4.19-5.50); Red Cell Distribution Width 17.1 % (11.5-14.5); Segmented Neutrophils % 94.2 %; White Blood Count 15.5 K/mcL (4.3-11.1)
[2021-03-20] MEDS: Insulin LISPRO 300 UNITS/3 ML VIAL SUBQ SCH ×3 (07:47→17:52)
[2021-03-20] MEDS: Albumin 25% 25gram/100mL 25 GM/100 ML IV.SOLN IVPB SCH (07:48)
[2021-03-20] MEDS: Apixaban 5 MG TABLET PO SCH ×2 (07:48→20:37)
[2021-03-20 07:49] LABS: Hemoglobin 10.7 g/dL (12.9-16.9)
[2021-03-20] MEDS: Metoprolol XL (24 HR) Succ 25 MG TAB.ER.24H PO SCH ×2 (07:49→20:37)
[2021-03-20] MEDS: MetroNIDAZOLE 500 MG/100 ML 500 MG/100 ML BAG IVPB SCH ×2 (09:51→15:47)
[2021-03-20] MEDS ORDERED: 0.9 % Sodium Chloride 250 ML IVC ONE (10:13)
[2021-03-20] MEDS ORDERED: D5% in Water 1,000 ML IVC SCH (10:15)
[2021-03-20] MEDS: *HR* Metoprolol 5 MG/5 ML VIAL IVP PRN (10:38)
[2021-03-20] MEDS: Azithromycin 500 MG in 0.9 % Sodium Chloride 250 ML IVPB SCH (11:33)
[2021-03-21] MEDS: Albumin 25% 25gram/100mL 25 GM/100 ML IV.SOLN IVPB SCH ×4 (00:50→18:05)
[2021-03-21 03:11] LABS: Bilirubin,Urine Negative (Negative); Blood,Urine Moderate (Negative); Clarity,Urine Clear (Clear); Color,Urine Light-Yellow (Yellow); Glucose,Urine (UA) 500 mg/dL (Normal); Ketones,Urine Negative (Negative); Leukocyte Esterase,Urine Small (Negative); Mucus,Urine Few per lpf (None-Few); Nitrite,Urine Negative (Negative); Protein,Urine 70 mg/dL (Neg-Trace); RBC,Urine 0-3 per hpf (0-3); Specific Gravity,Urine 1.016 (1.010-1.025); Squamous Epithelial Cell,Urine Few per hpf (None-Few); Urobilinogen,Urine Normal (Normal)
[2021-03-21 03:21] LABS: Protein/Creatinine Ratio,Urine 1.86 mg/mg (0.00-0.20); Sodium, Urine 72.5 mEq/L
[2021-03-21] MEDS: Ipratropium/Albuterol Neb 3 ML IH SCH ×6 (03:54→23:04)
[2021-03-21] MEDS: Cefepime HCl 1,000 MG in Water for inj. (sterile) 10 ML IVP SCH ×2 (05:29→16:55)
[2021-03-21] MEDS: methylPREDNISolone 125 MG/2 ML VIAL IVP SCH ×2 (05:30→16:55)
[2021-03-21 07:14] LABS: Basophils % 0.1 %; Hematocrit 30.5 % (37.5-50.1); Hemoglobin 9.8 g/dL (12.9-16.9); Lymphocytes # 0.1 K/mcL (0.6-4.6); Lymphocytes % 0.8 %; Mean Corpuscular HGB Conc 32.1 g/dL (31.6-35.5); Mean Corpuscular Volume 96.5 fL (83.0-100.0); Mean Platelet Volume 11.5 fL (9.4-12.4); Monocytes # 0.6 K/mcL (0.0-1.3); Monocytes % 3.2 %; Neutrophils # 16.8 K/mcL (1.6-8.9); Platelet Count 128 K/mcL (140-400); Red Blood Count 3.16 M/mcL (4.19-5.50); Red Cell Distribution Width 17.2 % (11.5-14.5); Segmented Neutrophils % 94.9 %; White Blood Count 17.7 K/mcL (4.3-11.1)
[2021-03-21 07:36] LABS: Calcium 9.1 mg/dL (8.6-10.3); Magnesium 2.6 mg/dL (1.6-2.6); Phosphorous 5.3 mg/dL (2.7-4.5); Potassium 3.5 mEq/L (3.5-5.1); Uric Acid 9.8 mg/dL (2.3-7.6)
[2021-03-21 07:54] LABS: Hypersegmented Neutrophils Present (Not Present)
[2021-03-21 07:55] LABS: Anisocytosis 1+ (Not Present); Platelet Estimate Normal (Normal); Poikilocytosis 1+ (Not Present)
[2021-03-21] MEDS ORDERED: D5% in Water 1,000 ML IVC SCH (08:45)
[2021-03-21 09:35] LABS: Hepatitis B Surface Antigen Nonreactive (Nonreactive)
[2021-03-21] MEDS: Apixaban 5 MG TABLET PO SCH ×3 (09:42→20:55)
[2021-03-21] MEDS: Metoprolol XL (24 HR) Succ 25 MG TAB.ER.24H PO SCH ×3 (09:42→20:55)
[2021-03-21] MEDS: Insulin LISPRO 300 UNITS/3 ML VIAL SUBQ SCH ×3 (09:43→16:22)
[2021-03-21] MEDS: Haloperidol Lactate 5 MG/ML VIAL IVP PRN (09:50)
[2021-03-21 10:04] LABS: Hepatitis B Core IgM Nonreactive (Nonreactive); Hepatitis C Virus Antibody Nonreactive (Nonreactive)
[2021-03-21 10:06] LABS: Hepatitis A Antibody IgM Nonreactive (Nonreactive)
[2021-03-21] MEDS: Azithromycin 500 MG in 0.9 % Sodium Chloride 250 ML IVPB SCH (11:09)
[2021-03-21] MEDS: MetroNIDAZOLE 500 MG/100 ML 500 MG/100 ML BAG IVPB SCH ×4 (11:19→23:34)
[2021-03-21 23:05] LABS: A.galactomannan Ag Index 0.04
[2021-03-22] MEDS: Albumin 25% 25gram/100mL 25 GM/100 ML IV.SOLN IVPB SCH ×2 (00:40→09:45)
[2021-03-22] MEDS: Ipratropium/Albuterol Neb 3 ML IH SCH ×6 (04:30→23:16)
[2021-03-22] MEDS: methylPREDNISolone 125 MG/2 ML VIAL IVP SCH ×2 (05:19→17:33)
[2021-03-22] MEDS: Cefepime HCl 1,000 MG in Water for inj. (sterile) 10 ML IVP SCH ×2 (05:20→17:32)
[2021-03-22 05:52] LABS: Basophils % 0.1 %; Hematocrit 28.1 % (37.5-50.1); Hemoglobin 8.6 g/dL (12.9-16.9); Immature Granulocytes % 0.4 % (0-4); Lymphocytes # 0.1 K/mcL (0.6-4.6); Lymphocytes % 1.1 %; Mean Corpuscular HGB Conc 30.6 g/dL (31.6-35.5); Mean Corpuscular Hemoglobin 30.8 pg (28.0-33.3); Mean Corpuscular Volume 100.7 fL (83.0-100.0); Monocytes # 0.4 K/mcL (0.0-1.3); Monocytes % 3.4 %; Platelet Count 102 K/mcL (140-400); Red Blood Count 2.79 M/mcL (4.19-5.50); Red Cell Distribution Width 17.3 % (11.5-14.5); White Blood Count 12.6 K/mcL (4.3-11.1)
[2021-03-22 06:14] LABS: Calcium 8.2 mg/dL (8.6-10.3); Magnesium 2.5 mg/dL (1.6-2.6); Phosphorous 6.2 mg/dL (2.7-4.5); Potassium 3.4 mEq/L (3.5-5.1)
[2021-03-22] MEDS: Apixaban 5 MG TABLET PO SCH ×2 (08:46→21:20)
[2021-03-22] MEDS: Metoprolol XL (24 HR) Succ 25 MG TAB.ER.24H PO SCH ×2 (08:46→21:20)
[2021-03-22] MEDS: Azithromycin 500 MG in 0.9 % Sodium Chloride 250 ML IVPB SCH (09:44)
[2021-03-22] MEDS: Insulin LISPRO 300 UNITS/3 ML VIAL SUBQ SCH ×3 (10:01→17:32)
[2021-03-22] MEDS: MetroNIDAZOLE 500 MG/100 ML 500 MG/100 ML BAG IVPB SCH ×3 (10:53→23:50)
[2021-03-22] MEDS: Aspirin Enteric Coated 81 MG Tablet PO SCH (12:19)
[2021-03-22] MEDS: D5% in Water 500 ML IVC SCH (15:40)
[2021-03-23] MEDS: Ipratropium/Albuterol Neb 3 ML IH SCH ×4 (04:09→16:09)
[2021-03-23] MEDS: methylPREDNISolone 125 MG/2 ML VIAL IVP SCH (04:57)
[2021-03-23] MEDS: Cefepime HCl 1,000 MG in Water for inj. (sterile) 10 ML IVP SCH (04:58)
[2021-03-23] MEDS: Haloperidol Lactate 5 MG/ML VIAL IVP PRN (04:59)
[2021-03-23] MEDS: D5% in Water 500 ML IVC SCH (05:03)
[2021-03-23 07:18] VITALS: BP 111/67; PULSE 70; TEMP 96.5
[2021-03-23 07:52] LABS: Blood Urea Nitrogen > 130 mg/dL (8-23); Calcium 8.7 mg/dL (8.6-10.3); Carbon Dioxide 20 mEq/L (23-29); Chloride 111 mEq/L (98-107); Glucose 73 mg/dL (70-105); Magnesium 2.8 mg/dL (1.6-2.6); Phosphorous 6.5 mg/dL (2.7-4.5); Potassium 3.8 mEq/L (3.5-5.1); Sodium 147 mEq/L (136-145); eGFR For African Americans 17 (> 60); eGFR For Non-African Americans 14 (> 60)
[2021-03-23 08:40] LABS: Basophils % 0.1 %; Hematocrit 29.6 % (37.5-50.1)
[2021-03-23 08:41] LABS: Hemoglobin 9.2 g/dL (12.9-16.9); Immature Platelets 6.7 % (1.1-6.1); Lymphocytes # 0.2 K/mcL (0.6-4.6); Lymphocytes % 1.3 %; Mean Corpuscular HGB Conc 31.1 g/dL (31.6-35.5); Mean Corpuscular Hemoglobin 31.2 pg (28.0-33.3); Mean Corpuscular Volume 100.3 fL (83.0-100.0); Mean Platelet Volume 11.5 fL (9.4-12.4); Monocytes # 0.5 K/mcL (0.0-1.3); Monocytes % 2.7 %; Neutrophils # 17.5 K/mcL (1.6-8.9); Nucleated Red Blood Cells 0.3 /100 WBC (0); Red Blood Count 2.95 M/mcL (4.19-5.50); Red Cell Distribution Width 17.1 % (11.5-14.5); Segmented Neutrophils % 94.9 %; White Blood Count 18.4 K/mcL (4.3-11.1)
[2021-03-23 08:45] LABS: Platelet Count 87 K/mcL (140-400)
[2021-03-23] MEDS: Azithromycin 500 MG in 0.9 % Sodium Chloride 250 ML IVPB SCH (09:21)
[2021-03-23] MEDS: Apixaban 5 MG TABLET PO SCH (09:26)
[2021-03-23] MEDS: Metoprolol XL (24 HR) Succ 25 MG TAB.ER.24H PO SCH (09:26)
[2021-03-23] MEDS: Aspirin Enteric Coated 81 MG Tablet PO SCH (09:26)
[2021-03-23] MEDS: MetroNIDAZOLE 500 MG/100 ML 500 MG/100 ML BAG IVPB SCH (09:46)
[2021-03-23] MEDS: Insulin LISPRO 300 UNITS/3 ML VIAL SUBQ SCH (09:46)
[2021-03-23] MEDS ORDERED: Morphine Sulfate 2 MG/ML SYRINGE IVP PRN ×3 (10:00→12:59)
[2021-03-23] MEDS ORDERED: *HR* LORazepam 2 MG/ML VIAL IVP ONE ×2 (10:00→13:10)
[2021-03-23] MEDS ORDERED: Budesonide/Formoterol 160/4.5 1 PUFF INH IH SCH (10:00)
[2021-03-23] MEDS ORDERED: *HR* LORazepam 2 MG/ML VIAL IVP PRN (12:57)
[2021-03-23 14:33] VITALS: O2SAT 98
== END 2021-03-23 18:17 | disposition expired | DRG 189 ==
LOC: 3NENU
PROVIDERS: ADMIT Family Medicine; ATTEND Family Medicine